=== PATIENT | male | born 1965 | race Caucasian/White ===

== ENCOUNTER 2019-03-05 12:54 | Outpatient (CLI) | payer SELFPAY ==
[2019-03-05 13:38] LABS: Alanine Aminotransferase 21 U/L (4-50); Albumin Level 3.7 g/dL (3.5-5.1); Alkaline Phosphatase 80 U/L (38-126); Aspartate Amino Transferase 22 U/L (17-59); Bilirubin,Total 0.6 mg/dL (0.2-1.3); Blood Urea Nitrogen 14 mg/dL (9-20); Calcium 8.7 mg/dL (8.4-10.2); Carbon Dioxide 28 mmol/L (22-30); Chloride 102 mmol/L (98-107); Cholesterol 208 mg/dL (0-200); Estimated Glomerular Filt Rate 58; Glucose 94 mg/dL (75-110); HDL Direct 35 mg/dL; Potassium 4.3 mmol/L (3.4-5.0); Sodium 137 mmol/L (137-145); Triglycerides 144 mg/dL (<150)
[2019-03-05 13:49] LABS: LDL Cholesterol Direct 147 mg/dL
[2019-03-05 14:08] LABS: Prostate Specific Antigen 1.9 ng/mL (< OR = 4.0)
== END 2019-03-05 12:55 | disposition home or self-care (01) ==
PROVIDERS: PCP Internal Medicine; Visit Provider Nurse Practitioner
DX: I10 Essential (primary) hypertension (principal); E78.5 Hyperlipidemia, unspecified; Z12.5 Encounter for screening for malignant neoplasm of prostate
CPT/HCPCS: 36415; 80053; 80061; 84153

== ENCOUNTER 2020-05-27 08:52 | Outpatient (CLI) | payer MEDICAID, SELFPAY ==
--- NOTE | ~2020-05-27 | XR_ITS ---
XR barium swallow DATE: 05/27/2020 09:44 INDICATION: Dysphagia, food sticking in esophagus TECHNIQUE: Fluoroscopy, rapid sequence spot and overhead radiographs during oral ingestion of barium 0.5 minutes fluoroscopy time DAP: 5.05 COMPARISON: None FINDINGS: There is circumferential narrowing at the distal esophagus with some shouldering, of concer n for possible constricting distal esophageal mass. Endoscopic correlation and biopsy are recommended . IMPRESSION: Possible constricting distal esophageal mass; endoscopic correlation biopsy recommended Dr. Mullins left a voicemail with the results and the recommendation for endoscopy and biopsy at [phone]. Reviewed, dictated and finalized at [facility]. Reviewed, dictated and finalized at [facility]. IMPRESSION: Possible constricting distal esophageal mass; endoscopic correlatio n biopsy recommended Dr. Mullins left a voicemail with the results and the recommendation for endoscopy and biopsy at [phone].
== END 2020-05-27 08:53 | disposition home or self-care (01) ==
LOC: ANHIMG 08:59
PROVIDERS: PCP Internal Medicine; Visit Provider Nurse Practitioner
DX: R13.10 Dysphagia, unspecified (principal)
CPT/HCPCS: 74220

== ENCOUNTER → 2020-05-28 01:01 | Outpatient (CLI) | payer MEDICAID, SELFPAY ==
[2020-05-28 21:02] LABS: SARS-CoV-2 RNA PCR Negative
== END ==
PROVIDERS: PCP Internal Medicine; Visit Provider Internal Medicine Gastroenterology
DX: Z01.812 Encounter for preprocedural laboratory examination (principal); Z20.822 Contact with and (suspected) exposure to COVID-19
CPT/HCPCS: C9803; U0003; U0005

== ENCOUNTER 2020-05-31 01:52 | Day surgery (SDC) | payer MEDICAID, SELFPAY ==
[2020-05-27 13:14] VITALS: BMI 27.0
[2020-05-31 08:45] VITALS: BP 106/78; PULSE 66; RESP 18; TEMP 36.7; O2SAT 100; BMI 27.6
[2020-05-31] MEDS: LACTATED RINGERS 1,000 ML 150 ML IV CONT (08:54)
--- NOTE | 2020-05-31 09:07 | WPDANESEPPF ---
Anes - Initial Pre Proc Eval Procedure: Operation Date: 05/31/20 09:30 Proposed Procedures p Esophagogastroduodenoscopy - Curtis Valentin MD Date/Time: 05/31/20 09:07 Surgeon: Curtis Valentin MD Pre Op Diagnosis: abnormal xray upper gi, dysphagia, poss mass Patient Data Age: 55 Gender: M Height: 5 ft 9 in Weight: 84.9 kg Last Vital Signs Temp 98.1 F 05/31/20 08:45 Pulse 66 05/31/20 08:45 Resp 18 05/31/20 08:45 BP 106/78 05/31/20 08:45 Pulse Ox 100 05/31/20 08:45 Allergies Allergy/AdvReac Type Severity Reaction Status Date / Time codeine Allergy Mild Nausea Verified 05/31/20 08:34 Home Medications Medication Instructions Recorded Confirmed Type krill oil 500 mg capsule 500 mg PO DAILY cap 03/04/19 05/31/20 History cranberry 500 mg capsule 500 mg PO BID 04/28/20 05/31/20 History lisinopril 10 See Rx Instructions .ROUTE 04/28/20 05/31/20 Rx mg-hydrochlorothiazide 12.5 mg .COMPLEX #90 tablet tablet sildenafil 100 mg tablet 100 mg PO DAILY PRN #30 tablet 04/28/20 05/27/20 Rx atorvastatin 10 mg tablet 10 mg PO QHS #30 tablet 04/29/20 05/31/20 Rx Patient hx anesthesia problems: none Family hx anesthesia problems: none PMFSH Past Medical History Medical History (Updated 05/31/20 @ 09:07 by Jan Moon MD) Benign essential hypertension Screening for lipid disorders Skin tag Family History Family History Mother Family history of chronic obstructive pulmonary disease Family history of diabetes mellitus in first degree relative Father Family history of Alzheimer's disease Social History Social History Smoking status: Never smoker Alcohol intake: never Living arrangements: alone Gender identity (if verbalized by the patient): Male Spiritual care concerns: No Anes - Eval Final PreProcedure Day of Procedure 05/31/20 09:07 Patient weight: overweight Heart: regular rate and rhythm Lungs: clear to auscultation Airway: Mallampati scale class II Neurological: alert and oriented Last oral intake: >/= 8 hours ASA classification: II Emergent: no Anesthetic plan: proceed Anesthesia type and monitoring: general GIVS and standard monitoring Informed Consent: The patient's anesthetic plan and its attendant risks and benefits were discussed with the patient/family/POA. Questions were solicited and answers provided to the satisfaction of the patient/family/POA.
--- NOTE | 2020-05-31 09:41 | PM.HPGS ---
History of Present Illness History of Present Illness Consent: Risks, benefits, and alternatives have been discussed and questions answered. Patient agrees to proceed with procedure. Chief complaint: abnormal xray upper gi, dysphagia, poss mass Narrative: Marcelo Rose is a 55 year old male with dysphagia to solids, recent esophagram showed circumferential narrowing at the distal esophagus, never had GED. Using omeprazole as needed. Review of Systems Constitutional: Constitutional: Denies headache(s) and Denies weakness Eyes: Eyes: Denies blurry vision ENT: Reports Normal hearing present, Denies headache(s) and Denies neck pain Cardiovascular: Cardiovascular: Denies chest pain and Denies dyspnea Respiratory: Respiratory: Denies dyspnea Gastrointestinal: Gastrointestinal: Reports no additional gastrointestinal complaints Genitourinary: Genitourinary: Denies dysuria Musculoskeletal: Musculoskeletal: Denies neck pain Integumentary/Breasts: Skin/Breast: Denies dry skin Neurologic: Reports Normal hearing present, Denies headache(s) and Denies weakness Psychiatric: Psychiatric: Denies anxiety Endocrine: Endocrine: Denies change in body appearance Hematologic/Lymphatic: Hematologic/Lymphatic: Denies easy bleeding Allergic/Immunologic: Allergic/Immunologic: Denies urticaria PMFSH Past Medical History Medical History (Updated 05/31/20 @ 09:42 by Curtis Valentin MD) Abnormal esophagram Benign essential hypertension Screening for lipid disorders Skin tag Family History Family History Mother Family history of chronic obstructive pulmonary disease Family history of diabetes mellitus in first degree relative Father Family history of Alzheimer's disease Social History Social History Smoking status: Never smoker Alcohol intake: never Living arrangements: alone Gender identity (if verbalized by the patient): Male Spiritual care concerns: No Meds Home Medications and Allergies Home Medications Medication Instructions Recorded Confirmed Type krill oil 500 mg capsule 500 mg PO DAILY cap 03/04/19 05/31/20 History cranberry 500 mg capsule 500 mg PO BID 04/28/20 05/31/20 History lisinopril 10 See Rx Instructions .ROUTE 04/28/20 05/31/20 Rx mg-hydrochlorothiazide 12.5 mg .COMPLEX #90 tablet tablet sildenafil 100 mg tablet 100 mg PO DAILY PRN #30 tablet 04/28/20 05/27/20 Rx atorvastatin 10 mg tablet 10 mg PO QHS #30 tablet 04/29/20 05/31/20 Rx Allergies Allergy/AdvReac Type Severity Reaction Status Date / Time codeine Allergy Mild Nausea Verified 05/31/20 08:34 Vital Signs Vital Signs - 24 hr 05/31/20 08:45 Temperature 98.1 F Pulse Rate 66 Respiratory Rate 18 Blood Pressure 106/78 Pulse Oximetry 100 Exam Const: General: comfortable and no acute distress HENMT: General nose exam: Normal nares present Eyes: General: appearance normal, both eyes and all related structures Neck: Neck: no JVD Resp: Auscultation: clear to auscultation bilaterally Cardio: Rate: regular rate Rhythm: regular rhythm GI: Inspection: non-distended GI Palp: Yes Soft to palpation Skin: General skin exam: normal color Neuro: General: gait normal Speech: normal speech Extrem: General: normal to inspection Psych: Mental Status: mental status grossly normal Assessment and Plan Assessment and plan (1) Dysphagia: Code(s): R13.10 - Dysphagia, unspecified Status: Acute Assessment and Plan: egd to assess (2) Abnormal esophagram: Code(s): R93.3 - Abnormal findings on diagnostic imaging of other parts of digestive tract Status: Acute Assessment and Plan: egd
--- NOTE | 2020-05-31 09:47 | SUR.OPER ---
Esophageal Balloon 15-18mm Lot: [id number] Exp: 2022-03-15
[2020-05-31 09:53] VITALS: BP 92/59; PULSE 75; RESP 18; O2SAT 98
[2020-05-31 10:03] VITALS: BP 101/60; PULSE 60; RESP 18; O2SAT 99
[2020-05-31 10:13] VITALS: BP 115/64; PULSE 60; RESP 18; O2SAT 99
== END 2020-05-31 11:15 | disposition home or self-care (01) ==
PROVIDERS: PCP Internal Medicine; Visit Provider Internal Medicine Gastroenterology
PROC: 0DJ08ZZ Inspection of Upper Intestinal Tract, Via Natural or Artificial Opening Endoscopic (ICD-10-PCS; CPT 43235; principal; 2020-05-31 09:30)
DX: R13.10 Dysphagia, unspecified (principal); K22.2 Esophageal obstruction; K21.00 Gastro-esophageal reflux disease with esophagitis, without bleeding; I10 Essential (primary) hypertension
CPT/HCPCS: 43249; 43239; 88305; C1726; J2704; J7120

== ENCOUNTER 2020-08-11 10:26 | Outpatient (CLI) | payer OTHER, SELFPAY ==
[2020-08-11 11:01] LABS: Cholesterol 155 mg/dL (0-200); HDL Direct 32 mg/dL; Triglycerides 113 mg/dL (<150)
[2020-08-11 11:12] LABS: LDL Cholesterol Direct 96 mg/dL
== END 2020-08-11 10:27 | disposition home or self-care (01) ==
PROVIDERS: PCP Internal Medicine; Visit Provider Nurse Practitioner
DX: E78.5 Hyperlipidemia, unspecified (principal)
CPT/HCPCS: 36415; 80061

== ENCOUNTER → 2020-10-22 01:22 | Outpatient (CLI) | payer OTHER, SELFPAY ==
[2020-10-22 19:38] LABS: SARS-CoV-2 RNA PCR Negative
== END ==
PROVIDERS: PCP Internal Medicine; Visit Provider Internal Medicine Gastroenterology
DX: Z20.822 Contact with and (suspected) exposure to COVID-19 (principal)
CPT/HCPCS: C9803; U0003; U0005

== ENCOUNTER 2020-10-25 01:23 | Day surgery (SDC) | payer OTHER, SELFPAY ==
[2020-10-14 15:18] VITALS: BMI 27.3
[2020-10-25 08:28] VITALS: BP 121/76; PULSE 65; RESP 20; TEMP 36.8; O2SAT 100
[2020-10-25] MEDS: LACTATED RINGERS 1,000 ML 150 ML IV CONT (08:36)
--- NOTE | 2020-10-25 08:46 | WPDANESEPPF ---
Anes - Initial Pre Proc Eval Procedure: Operation Date: 10/25/20 11:00 Proposed Procedures p Esophagogastroduodenoscopy - Curtis Valentin MD Date/Time: 10/25/20 08:46 Surgeon: Curtis Valentin MD Pre Op Diagnosis: esophagitis, dysphagia Patient Data Age: 55 Gender: M Height: 1.75 m Weight: 84.3 kg Last Vital Signs Temp 98.2 F 10/25/20 08:28 Pulse 65 10/25/20 08:28 Resp 20 10/25/20 08:28 BP 121/76 10/25/20 08:28 Pulse Ox 100 10/25/20 08:28 Allergies Allergy/AdvReac Type Severity Reaction Status Date / Time codeine Allergy Mild Nausea Verified 10/25/20 08:27 Home Medications Medication Instructions Recorded Confirmed Type krill oil 500 mg capsule 500 mg PO DAILY cap 03/04/19 10/25/20 History cranberry 500 mg capsule 500 mg PO BID 04/28/20 10/25/20 History sildenafil 100 mg tablet 100 mg PO DAILY PRN #30 tablet 04/28/20 10/25/20 Rx atorvastatin 10 mg tablet 10 mg PO QHS #30 tablet 04/29/20 10/25/20 Rx omeprazole 20 mg capsule,delayed 20 mg PO DAILY #30 cap 05/31/20 10/25/20 Rx release lisinopril-hydrochlorothiazide 1 tablet PO DAILY 10/14/20 10/25/20 History Patient hx anesthesia problems: none Family hx anesthesia problems: none PMFSH Past Medical History Medical History (Updated 10/25/20 @ 08:48 by Curtis Valentin MD) Abnormal esophagram Benign essential hypertension GERD (gastroesophageal reflux disease) Screening for lipid disorders Skin tag Family History Family History Mother Family history of chronic obstructive pulmonary disease Family history of diabetes mellitus in first degree relative Father Family history of Alzheimer's disease Social History Social History Smoking status: Never smoker Alcohol intake: never Living arrangements: with family Gender identity (if verbalized by the patient): Male Spiritual care concerns: No Anes - Eval Final PreProcedure Day of Procedure 10/25/20 08:46 Patient weight: overweight Heart: regular rate and rhythm Lungs: clear to auscultation Airway: Mallampati scale class II Neurological: alert and oriented Last oral intake: >/= 8 hours ASA classification: II Emergent: no Anesthetic plan: proceed Anesthesia type and monitoring: general GIVS and standard monitoring Informed Consent: The patient's anesthetic plan and its attendant risks and benefits were discussed with the patient/family/POA. Questions were solicited and answers provided to the satisfaction of the patient/family/POA.
--- NOTE | 2020-10-25 08:47 | PM.HPGS ---
History of Present Illness History of Present Illness Consent: Risks, benefits, and alternatives have been discussed and questions answered. Patient agrees to proceed with procedure. Chief complaint: esophagitis, dysphagia Narrative: Marcelo Rose is a 55 year old male with dysphagia due to esophageal ring dilated few months ago and now significantly improved, also esophagitis on ppi Review of Systems Constitutional: Constitutional: Denies headache(s) and Denies weakness Eyes: Eyes: Denies blurry vision ENT: Reports Normal hearing present, Denies headache(s) and Denies neck pain Cardiovascular: Cardiovascular: Denies chest pain and Denies dyspnea Respiratory: Respiratory: Denies dyspnea Gastrointestinal: Gastrointestinal: Reports no additional gastrointestinal complaints Genitourinary: Genitourinary: Denies dysuria Musculoskeletal: Musculoskeletal: Denies neck pain Integumentary/Breasts: Skin/Breast: Denies dry skin Neurologic: Reports Normal hearing present, Denies headache(s) and Denies weakness Psychiatric: Psychiatric: Denies anxiety Endocrine: Endocrine: Denies change in body appearance Hematologic/Lymphatic: Hematologic/Lymphatic: Denies easy bleeding Allergic/Immunologic: Allergic/Immunologic: Denies urticaria PMF Past Medical History Medical History (Updated 10/25/20 @ 08:48 by Curtis Valentin MD) Abnormal esophagram Benign essential hypertension GERD (gastroesophageal reflux disease) Screening for lipid disorders Skin tag Family History Family History Mother Family history of chronic obstructive pulmonary disease Family history of diabetes mellitus in first degree relative Father Family history of Alzheimer's disease Social History Social History Smoking status: Never smoker Alcohol intake: never Living arrangements: with family Gender identity (if verbalized by the patient): Male Spiritual care concerns: No Meds Home Medications and Allergies Home Medications Medication Instructions Recorded Confirmed Type krill oil 500 mg capsule 500 mg PO DAILY cap 03/04/19 10/25/20 History cranberry 500 mg capsule 500 mg PO BID 04/28/20 10/25/20 History sildenafil 100 mg tablet 100 mg PO DAILY PRN #30 tablet 04/28/20 10/25/20 Rx atorvastatin 10 mg tablet 10 mg PO QHS #30 tablet 04/29/20 10/25/20 Rx omeprazole 20 mg capsule,delayed 20 mg PO DAILY #30 cap 05/31/20 10/25/20 Rx release lisinopril-hydrochlorothiazide 1 tablet PO DAILY 10/14/20 10/25/20 History Allergies Allergy/AdvReac Type Severity Reaction Status Date / Time codeine Allergy Mild Nausea Verified 10/25/20 08:27 Vital Signs Vital Signs - 24 hr 10/25/20 08:28 Temperature 98.2 F Pulse Rate 65 Respiratory Rate 20 Blood Pressure 121/76 Pulse Oximetry 100 Exam Const: General: comfortable and no acute distress HENMT: General nose exam: Normal nares present Eyes: General: appearance normal, both eyes and all related structures Neck: Neck: no JVD Resp: Auscultation: clear to auscultation bilaterally Cardio: Rate: regular rate Rhythm: regular rhythm GI: Inspection: non-distended GI Palp: Yes Soft to palpation Skin: General skin exam: normal color Neuro: General: gait normal Speech: normal speech Extrem: General: normal to inspection Psych: Mental Status: mental status grossly normal Assessment and Plan Assessment and plan (1) Dysphagia: Code(s): R13.10 - Dysphagia, unspecified Status: Acute Assessment and Plan: esophageal ring dilated previously and doing better now, egd to reassess (2) GERD (gastroesophageal reflux disease): Code(s): K21.9 - Gastro-esophageal reflux disease without esophagitis Status: Acute
[2020-10-25] MEDS: BENZOCAINE (*SP) 60 ML SPRAY CAN (HURRICAINE) 1 SPRAY MUCOUS MEM (08:52)
[2020-10-25 09:03] VITALS: BP 93/61; PULSE 63; RESP 20; O2SAT 98
[2020-10-25 09:13] VITALS: BP 93/64; PULSE 59; RESP 20; O2SAT 98
[2020-10-25 09:23] VITALS: BP 108/70; PULSE 60; RESP 15; O2SAT 98
== END 2020-10-25 09:45 | disposition home or self-care (01) ==
PROVIDERS: PCP Internal Medicine; Visit Provider Internal Medicine Gastroenterology
PROC: 0DJ08ZZ Inspection of Upper Intestinal Tract, Via Natural or Artificial Opening Endoscopic (ICD-10-PCS; CPT 43235; principal; 2020-10-25 11:00)
DX: K22.2 Esophageal obstruction (principal); K21.9 Gastro-esophageal reflux disease without esophagitis; I10 Essential (primary) hypertension
CPT/HCPCS: 43249; C1726; J7120

== ENCOUNTER 2020-11-11 15:24 | Outpatient (CLI) | payer OTHER, SELFPAY ==
--- NOTE | ~2020-11-11 | XR_ITS ---
XR lumbar spine 2-3V DATE: 11/11/2020 15:49 INDICATION: Lower left flank pain for one week. History of kidney stones. TECHNIQUE: AP, lateral, coned lateral lumbosacral views COMPARISON: None FINDINGS: There is minimal levoscoliosis of the thoracic and upper lumbar spine. No lumbar spine fracture or bone destruction. The lumbar pedicles are intact. There is mild degenerative disc disease of the lumbar spine. The sacral iliac joints are intact. IMPRESSION: Mild multilevel degenerative disc disease Reviewed, dictated and finalized at [facility].
[2020-11-11 17:50] LABS: Anion Gap 8 mmol/L (8-16); Blood Urea Nitrogen 21 mg/dL (9-20); Calcium 9.1 mg/dL (8.4-10.2); Carbon Dioxide 30 mmol/L (22-30); Chloride 102 mmol/L (98-107); Estimated Glomerular Filt Rate 48; Glucose 85 mg/dL (65-110); Potassium 4.1 mmol/L (3.4-5.0); Sodium 140 mmol/L (137-145)
== END 2020-11-11 15:25 | disposition home or self-care (01) ==
LOC: ANHIMG 15:26
PROVIDERS: PCP Internal Medicine; Visit Provider Nurse Practitioner
DX: M47.816 Spondylosis without myelopathy or radiculopathy, lumbar region (principal); M41.9 Scoliosis, unspecified; I10 Essential (primary) hypertension
CPT/HCPCS: 36415; 72100; 80048

== ENCOUNTER → 2020-12-14 04:08 | Outpatient (CLI) | payer OTHER, SELFPAY ==
[2020-12-14 16:54] LABS: SARS-CoV-2 RNA PCR Negative
== END ==
PROVIDERS: PCP Internal Medicine; Visit Provider Internal Medicine
DX: R09.89 Other specified symptoms and signs involving the circulatory and respiratory systems (principal); Z20.822 Contact with and (suspected) exposure to COVID-19
CPT/HCPCS: C9803; U0003; U0005

== ENCOUNTER → 2020-12-22 02:24 | Outpatient (CLI) | payer OTHER, SELFPAY ==
[2020-12-22 18:47] LABS: SARS-CoV-2 RNA PCR Negative
== END ==
PROVIDERS: PCP Internal Medicine; Visit Provider Internal Medicine
DX: R06.89 Other abnormalities of breathing (principal); Z20.822 Contact with and (suspected) exposure to COVID-19
CPT/HCPCS: C9803; U0003; U0005

== ENCOUNTER 2021-06-07 13:50 | Outpatient (CLI) | payer OTHER, SELFPAY ==
[2021-06-07 14:14] LABS: Alanine Aminotransferase 19 U/L (4-50); Albumin Level 4.1 g/dL (3.5-5.1); Alkaline Phosphatase 70 U/L (38-126); Anion Gap 3 mmol/L (8-16); Aspartate Amino Transferase 26 U/L (17-59); Bilirubin,Total 1.1 mg/dL (0.2-1.3); Blood Urea Nitrogen 16 mg/dL (9-20); Calcium 8.7 mg/dL (8.4-10.2); Carbon Dioxide 29 mmol/L (22-30); Chloride 106 mmol/L (98-107); Cholesterol 163 mg/dL (0-200); Estimated Glomerular Filt Rate 48; Glucose 82 mg/dL (65-110); HDL Direct 36 mg/dL; Potassium 4.3 mmol/L (3.4-5.0); Sodium 138 mmol/L (137-145); Triglycerides 89 mg/dL (<150)
[2021-06-07 14:25] LABS: LDL Cholesterol Direct 96 mg/dL
[2021-06-07 14:44] LABS: Prostate Specific Antigen 1.8 ng/mL (< OR = 4.0)
== END 2021-06-07 13:51 | disposition home or self-care (01) ==
LOC: ANHLAB 13:52
PROVIDERS: PCP Internal Medicine; Visit Provider Internal Medicine
DX: I10 Essential (primary) hypertension (principal); Z79.899 Other long term (current) drug therapy; Z12.5 Encounter for screening for malignant neoplasm of prostate; E78.5 Hyperlipidemia, unspecified
CPT/HCPCS: 36415; 80053; 80061; 84153; G0103

== ENCOUNTER 2021-07-23 12:49 | Emergency (ER) | payer OTHER, SELFPAY ==
[2021-07-23 13:04] VITALS: BP 130/94; PULSE 69; RESP 18; TEMP 36.6; O2SAT 100
--- NOTE | 2021-07-23 13:48 | ED.URI ---
HPI - URI/Sore Throat General Chief Complaint: Upper Respiratory Infection Stated Complaint: sore throat Time Seen by Provider: 07/23/21 13:48 Source: patient Mode of arrival: ambulatory Limitations: no limitations History of Present Illness HPI Narrative: 56-year-old male presented for complaint of hoarse voice for 2 days. Endorses he has been coughing up the yellow/brown sputum along with postnasal drainage Denies sore throat, shortness of breath, wheezing, nausea, vomiting, fevers or chills. 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 Has not taken anything for symptoms. Related Data Home Medications Medication Instructions Recorded Confirmed cranberry 500 mg capsule 500 mg PO BID 04/28/20 07/23/21 Allergies Allergy/AdvReac Type Severity Reaction Status Date / Time codeine Allergy Mild Nausea Verified 07/23/21 13:10 Review of Systems Review of Systems: CONSTITUTIONAL: Denies body aches, fever, chills, or sweats. EYES: Denies visual changes, redness, or discharge. ENT: Reports rhinorrhea, congestion, hoarseness CARDIOVASCULAR: Denies chest pain, palpitations, or edema. RESPIRATORY: Denies cough or dyspnea. NEUROLOGIC: Denies headache, numbness, tingling, or weakness. All systems reviewed & are unremarkable except as noted in HPI and below PMFSH Past Medical History Medical History Abnormal esophagram Benign essential hypertension GERD (gastroesophageal reflux disease) Screening for lipid disorders Skin tag Family History Family History Mother Family history of chronic obstructive pulmonary disease Family history of diabetes mellitus in first degree relative Father Family history of Alzheimer's disease Social History Social History Second hand tobacco smoke exposure: No Alcohol intake: never Substance use: never Substance use type: does not use Gender identity (if verbalized by the patient): Male Spiritual care concerns: No Comments At time of signature, I have reviewed and agree with nursing past medical, surgical, social and family history unless otherwise noted. Please see nursing chart for further information. There is no relevant family history pertinent to the presenting complaint Exam Narrative: GENERAL: Well-appearing, well-nourished, and in no acute distress. EYES: EOMI. No redness or drainage. Conjunctivae normal. ENT: Mucous membranes pink and moist. No rhinorrhea. TMs normal bilaterally. Throat erythematous without tonsillar exudate. Uvula midline. NECK: Normal AROM. Supple. No lymphadenopathy. CHEST: No respiratory distress. Clear to auscultation. HEART: Regular rate and rhythm. No murmur appreciated. Normal peripheral pulses. NEURO: No focal deficits. Alert and oriented x3. Gait steady. PSYCH: Normal affect. Course Course Emergency Course: Patient is aware of diagnosis, understands and agrees to treatment plan. Anticipatory guidance given. Patient agrees to follow-up as directed and is aware of reasons to seek care at the emergency department. Portions of this record may have been created with voice recognition software Level of Care: Express Care Visit Vital Signs Vital signs: Vital Signs Temperature 97.8 F 07/23/21 13:04 Pulse Rate 69 07/23/21 13:04 Respiratory Rate 18 07/23/21 13:04 Blood Pressure 130/94 H 07/23/21 13:04 Pulse Oximetry 100 07/23/21 13:04 Oxygen Delivery Room Air 07/23/21 13:04 Temperature 97.8 F 07/23/21 13:04 Pulse Rate 69 07/23/21 13:04 Respiratory Rate 18 07/23/21 13:04 Blood Pressure 130/94 H 07/23/21 13:04 Pulse Oximetry 100 07/23/21 13:04 Oxygen Delivery Room Air 07/23/21 13:04 MDM - URI/Sore Throat MDM Narrative Medical decision making narrative: IM steroid given for hoarse voic
[2021-07-23] MEDS: methylPREDNISolone ACETATE 80 MG/ML VIAL IM (14:05)
== END 2021-07-23 14:13 | disposition home or self-care (01) ==
PROVIDERS: Emergency Provider Nurse Practitioner Family
DX: J02.9 Acute pharyngitis, unspecified (principal); J30.2 Other seasonal allergic rhinitis; I10 Essential (primary) hypertension; K21.9 Gastro-esophageal reflux disease without esophagitis
CPT/HCPCS: 96372; 99213; G0463; J1040

== ENCOUNTER 2021-11-15 15:30 | Emergency (ER) | payer OTHER, SELFPAY ==
[2021-11-15 15:57] VITALS: BP 117/75; PULSE 58; RESP 16; TEMP 36.2; O2SAT 99
--- NOTE | 2021-11-15 16:50 | ED.URI ---
HPI - URI/Sore Throat General Chief Complaint: Upper Respiratory Infection Stated Complaint: congestion, sore throat Time Seen by Provider: 11/15/21 16:50 Source: patient, RN notes reviewed and old records reviewed Mode of arrival: ambulatory Limitations: no limitations History of Present Illness HPI Narrative: 56 year old male presents to [facility] care with complaints of nasal congestion with sore throat and cough for the past 2 days. 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 Patient denies any fevers, chills or sweats, reports no body aches, Patient has not had Covid or influenza vaccines. Patient request steroid shot for his hoarseness. Lungs clear to auscultation strep screen is negative. MD elicited complaint: cough and sore throat Onset (ago): day(s) (2) Treatments prior to arrival: none Related Data Home Medications Medication Instructions Recorded Confirmed cranberry 500 mg capsule 500 mg PO BID 04/28/20 11/15/21 Allergies Allergy/AdvReac Type Severity Reaction Status Date / Time codeine Allergy Mild Nausea Verified 11/15/21 15:37 Review of Systems Review of Systems: CONSTITUTIONAL: Denies malaise, chills, sweats, or fever. EYES: Denies visual changes, redness, or discharge. ENT: Reports rhinorrhea, congestion, sinus pain,no otalgia, reports sore throat and hoarseness. CARDIOVASCULAR: Denies chest pain, palpitations, or edema. RESPIRATORY: Reports cough.? Denies dyspnea. GASTROINTESTINAL: Denies abdominal pain, nausea, vomiting, diarrhea SKIN: Denies rash or itching. MUSCULOSKELETAL: Denies myalgia. NEUROLOGIC: Denies headache. All systems reviewed & are unremarkable except as noted in HPI and below PMFSH Past Medical History Medical History Abnormal esophagram Benign essential hypertension GERD (gastroesophageal reflux disease) Screening for lipid disorders Skin tag Family History Family History Mother Family history of chronic obstructive pulmonary disease Family history of diabetes mellitus in first degree relative Father Family history of Alzheimer's disease Social History Social History (Updated 11/18/21 @ 09:10 by ALVINA Rizzo Smoking status: Never smoker Second hand tobacco smoke exposure: No Alcohol intake: never Substance use: never Substance use type: does not use Gender identity (if verbalized by the patient): Male Spiritual care concerns: No Comments At time of signature, agree with nursing past medical, surgical, social and family history. There is no relevant family history pertinent to the presenting complaint Exam Narrative: GENERAL: Well-appearing, well-nourished, and in no acute distress. HEAD: Normocephalic EYES: PERRLA, conjunctivae clear ENT: Nares clear, turbinates edematous and erythematous, clear discharge. Mucous membranes moist. TM pearly ellis with dull light reflex bilaterally; no tragal tenderness. Oropharynx erythematous without lesions. Tonsils not enlarged and without exudate, no drooling, positive for hoarseness, no trismus, uvula midline. NECK: Supple. No lymphadenopathy CHEST: Clear to auscultation, breath sounds equal. No wheezing, rhonchi, rales, or stridor. No respiratory distress, speaks in full sentences.occasional cough SAO2 99% on room air HEART: Regular rate and rhythm. No murmur heard. SKIN: Warm, dry, no rash. NEURO: Alert and oriented x3. PSYCH: Normal mood and affect Course Course Emergency Course: Patient is aware of diagnosis, understands and agrees to treatment plan.? Anticipatory guidance given.? Patient agrees to follow-up as directed and is aware of reasons to seek care at the emergency department. Portions of this record may have been created with voice
[2021-11-15] MEDS: methylPREDNISolone ACETATE 80 MG/ML VIAL IM (17:19)
== END 2021-11-15 17:40 | disposition home or self-care (01) ==
PROVIDERS: Emergency Provider Registered Nurse; PCP Internal Medicine
DX: J02.9 Acute pharyngitis, unspecified (principal); R49.0 Dysphonia; I10 Essential (primary) hypertension; K21.9 Gastro-esophageal reflux disease without esophagitis
CPT/HCPCS: 87081; 87880; 96372; 99213; G0463; J1040

== ENCOUNTER 2022-06-02 09:41 | Outpatient (CLI) | payer OTHER, SELFPAY ==
[2022-06-02 10:25] LABS: Alanine Aminotransferase 23 U/L (6-50); Albumin Level 3.9 g/dL (3.5-5.1); Alkaline Phosphatase 72 U/L (38-126); Anion Gap 4 mmol/L (8-16); Aspartate Amino Transferase 23 U/L (17-59); Blood Urea Nitrogen 14 mg/dL (9-20); Calcium 8.4 mg/dL (8.4-10.2); Carbon Dioxide 30 mmol/L (22-30); Chloride 106 mmol/L (98-107); Cholesterol 183 mg/dL (0-200); Estimated Glomerular Filt Rate > 60; Glucose 95 mg/dL (65-110); HDL Direct 39 mg/dL; Sodium 140 mmol/L (137-145); Triglycerides 82 mg/dL (<150)
[2022-06-02 10:36] LABS: LDL Cholesterol Direct 115 mg/dL
[2022-06-02 10:56] LABS: Prostate Specific Antigen 1.8 ng/mL (< OR = 4.0)
== END 2022-06-02 09:42 | disposition home or self-care (01) ==
PROVIDERS: PCP Internal Medicine; Visit Provider Internal Medicine
DX: E78.5 Hyperlipidemia, unspecified (principal); Z79.899 Other long term (current) drug therapy; I10 Essential (primary) hypertension; Z12.5 Encounter for screening for malignant neoplasm of prostate
CPT/HCPCS: 36415; 80053; 80061; 84153; G0103

== ENCOUNTER 2022-08-01 10:43 | Outpatient (CLI) | payer OTHER, SELFPAY ==
--- NOTE | ~2022-08-01 | XR_ITS ---
EXAMINATION: XR abdomen/kub 1V INDICATION: Lower abdominal pain TECHNIQUE: Supine views of the abdomen were obtained on 2 radiographs. COMPARISON: 08/28/2011 FINDINGS: The bowel gas pattern is normal. The visualized lung bases are clear. There are phleboliths of the pelvis. There is mild osteoarthritis of the hips. There are no dilated loops of bowel. Lymph nodes are noted in the femoral necks. IMPRESSION: 1. No radiographic correlate for the patient's symptoms. Reviewed, dictated and finalized at location [facility].
[2022-08-01 12:00] LABS: Appearance Urine Clear (Clear); Bilirubin Urine Negative (Negative); Blood Urine Negative (Negative); Color Urine Yellow (Yellow); Glucose Urine UA Negative (Negative); Ketones Urine Negative (Negative); Leukocyte Esterase Ur Negative LEU/UL (NEGATIVE); Nitrate Urine Negative (Negative); Protein Urine Negative (Negative); Specific Grav Ur 1.023 (1.001-1.035); Urobilinogen Urine 0.2 mg/dL (<2.0); pH Urine 5.5 (5.0-9.0)
[2022-08-01 12:10] LABS: Add Urine Microscopic? NO
== END 2022-08-01 10:44 | disposition home or self-care (01) ==
PROVIDERS: PCP Nurse Practitioner; Visit Provider Nurse Practitioner Family
DX: R10.9 Unspecified abdominal pain (principal); R30.0 Dysuria; Z87.442 Personal history of urinary calculi
CPT/HCPCS: 74018; 81003; 87086

== ENCOUNTER 2022-09-22 10:15 | Outpatient (CLI) | payer OTHER, SELFPAY ==
[2022-09-22 12:00] LABS: Basophils Percent Auto 0.4 % (0.2-1.2); Eosinophils Absolute Auto 0.4 K/mm3 (0-0.3); Hemoglobin 15.4 g/dL (14.0-18.0); Immature Granulocyte Absolute 0.02 K/mm3 (0.00-0.031); Immature Granulocyte Percent A 0.3 % (0-0.5); Lymphocytes Percent Auto 16.2 % (18.3-44.2); Mean Corpuscular HGB Conc 32.8 g/dl (32-36); Mean Corpuscular Hemoglobin 31.6 pg (26-34); Mean Corpuscular Volume 96.5 fl (80-100); Mean Platelet Volume 10.1 fl (7.4-10.4); Monocytes Absolute Auto 0.5 K/mm3 (0.1-0.6); Monocytes Percent Auto 7.2 % (2.6-8.5); Neutrophils Absolute Auto 4.8 K/mm3 (1.3-6.7); Neutrophils Percent Auto 69.9 % (45.5-73.1); Platelet Count Result 184 k/mm3 (150-375); Red Blood Count 4.87 M/mm3 (4.6-6.20); Red Cell Distribution Width 13.5 % (11.5-14.5); White Blood Count 6.8 K/mm3 (4.5-10.0)
[2022-09-22 12:07] LABS: Hemoglobin A1C 5.5 % (<5.7)
[2022-09-22 12:18] LABS: Alanine Aminotransferase 27 U/L (6-50); Albumin Level 4.3 g/dL (3.5-5.1); Alkaline Phosphatase 83 U/L (38-126); Anion Gap 5 mmol/L (8-16); Aspartate Amino Transferase 31 U/L (17-59); Bilirubin,Total 1.3 mg/dL (0.2-1.3); Blood Urea Nitrogen 11 mg/dL (9-20); Calcium 8.9 mg/dL (8.4-10.2); Carbon Dioxide 30 mmol/L (22-30); Chloride 105 mmol/L (98-107); Cholesterol 196 mg/dL (0-200); Estimated Glomerular Filt Rate 57; Glucose 94 mg/dL (65-110); HDL Direct 45 mg/dL; Potassium 3.9 mmol/L (3.4-5.0); Sodium 140 mmol/L (137-145); Triglycerides 86 mg/dL (<150)
[2022-09-22 12:27] LABS: LDL Cholesterol Direct 116 mg/dL
[2022-09-22 12:45] LABS: Prostate Specific Antigen 2.2 ng/mL (< OR = 4.0)
[2022-09-22 12:53] LABS: HIV 1/2 Ab P24 Ag Result Negative (Negative)
[2022-09-22 13:20] LABS: Folic Acid 11.4 ng/mL (2.76->20)
== END 2022-09-22 10:16 | disposition home or self-care (01) ==
PROVIDERS: PCP Nurse Practitioner; Visit Provider Nurse Practitioner Family
DX: R20.0 Anesthesia of skin (principal); R20.2 Paresthesia of skin; Z11.4 Encounter for screening for human immunodeficiency virus [HIV]; I10 Essential (primary) hypertension; Z13.228 Encounter for screening for other metabolic disorders; Z13.220 Encounter for screening for lipoid disorders; Z13.0 Encounter for screening for diseases of the blood and blood-forming organs and certain disorders involving the immune mechanism; Z12.5 Encounter for screening for malignant neoplasm of prostate; Z11.59 Encounter for screening for other viral diseases; Z11.3 Encounter for screening for infections with a predominantly sexual mode of transmission
CPT/HCPCS: 36415; 80053; 80061; 82248; 82607; 82746; 83036; 84153; 84443; 85025; 86703; 87491; 87591; G0103; G0432

== ENCOUNTER 2023-05-03 10:46 | Outpatient (CLI) | payer OTHER, SELFPAY ==
[2023-05-03 11:45] LABS: Alanine Aminotransferase 21 U/L (6-50); Alkaline Phosphatase 78 U/L (38-126); Anion Gap 4 mmol/L (4-12); Aspartate Amino Transferase 23 U/L (17-59); Blood Urea Nitrogen 16 mg/dL (9-20); Calcium 9.1 mg/dL (8.4-10.2); Carbon Dioxide 30 mmol/L (22-30); Chloride 105 mmol/L (98-107); Cholesterol 158 mg/dL (0-200); Estimated Glomerular Filt Rate 52; Glucose 93 mg/dL (65-110); HDL Direct 35 mg/dL; Potassium 4.1 mmol/L (3.4-5.0); Sodium 139 mmol/L (137-145); Triglycerides 150 mg/dL (<150)
[2023-05-03 11:56] LABS: LDL Cholesterol Direct 96 mg/dL
[2023-05-03 13:28] LABS: Hemoglobin A1C 5.7 % (<5.7)
== END 2023-05-03 10:47 | disposition home or self-care (01) ==
PROVIDERS: PCP Nurse Practitioner; Visit Provider Nurse Practitioner
DX: E11.9 Type 2 diabetes mellitus without complications (principal); E78.5 Hyperlipidemia, unspecified
CPT/HCPCS: 36415; 80053; 80061; 83036

== ENCOUNTER 2023-08-30 09:23 | Outpatient (CLI) | payer OTHER, SELFPAY ==
--- NOTE | 2023-08-30 | EST_ITS ---
Patient Info Name: Marcelo Rose Age: 58 years : 1965 Gender: Male Ht: 69 in Wt: 180 lbs BSA: 2.01 m2 HR: 58 bpm BP: 132 / 94 mmHg Heart Rhythm: Sinus Rhythm Exam Date: 08/30/2023 10:18 AM Exam Location: Echo Lab Patient Status: Outpatient Admit Date: 08/30/2023 Staff Ordering Physician: Yaw Olmstead APRN Attending Provider: Yaw Olmstead APRN Exercise Technologist: Afshan Pryor CT Exercise Physician: Jose Ronquillo DO Exam Type: CA stress test treadmill Study Info Indications R07.89 - Other chest pain A treadmill exercise stress test was performed. Summary 1. 1. Negative Jacob exercise stress test for ischemic ST changes by ECG criteria. 2. 2. Good functional capacity, achieving 11 METs of workload. 3. 3. Appropriate HR response to exercise. 4. 4. Appropriate HR recovery at 1 minute post exercise. 5. 5. No imaging with stress testing. 6. 6. Patient informe of the above results. Protocol: Jacob Rest HR: 58 bpm Peak HR: 137 bpm Rest Sys BP: 132 mmHg Peak Sys BP: 170 mmHg Max Pred HR: 161 bpm % Max Pred HR: 85 % Target HR: 137 bpm Max RPP: 23,290 bpm*mmHg Termination Reason: Reached target heart rate or workload Cardiac Symptoms: Shortness of breath Total Time: 9 min : 30 sec Rest Whalen BP: 94 mmHg Peak Whalen BP: 90 mmHg Resting ECG Sinus rhythm. Stress ECG No ST changes. Arrhythmias None. Report Signatures
== END 2023-08-30 09:24 | disposition home or self-care (01) ==
LOC: ANHCARD 09:24
PROVIDERS: PCP Nurse Practitioner; Visit Provider Nurse Practitioner
DX: R07.89 Other chest pain (principal); Z82.49 Family history of ischemic heart disease and other diseases of the circulatory system
CPT/HCPCS: 93017

== ENCOUNTER 2023-11-27 10:57 | Outpatient (CLI) | payer OTHER, SELFPAY ==
[2023-11-27 11:37] LABS: Alanine Aminotransferase 24 U/L (6-50); Albumin Level 4.1 g/dL (3.5-5.1); Alkaline Phosphatase 67 U/L (38-126); Anion Gap 7 mmol/L (4-12); Aspartate Amino Transferase 25 U/L (17-59); Bilirubin,Total 1.3 mg/dL (0.2-1.3); Blood Urea Nitrogen 19 mg/dL (9-20); Calcium 8.8 mg/dL (8.4-10.2); Carbon Dioxide 27 mmol/L (22-30); Chloride 105 mmol/L (98-107); Cholesterol 178 mg/dL (0-200); Estimated Glomerular Filt Rate 57; Glucose 86 mg/dL (65-110); HDL Direct 40 mg/dL; Potassium 4.3 mmol/L (3.4-5.0); Sodium 139 mmol/L (137-145); Triglycerides 79 mg/dL (<150)
[2023-11-27 11:47] LABS: LDL Cholesterol Direct 105 mg/dL
[2023-11-27 12:07] LABS: Prostate Specific Antigen 2.1 ng/mL (< OR = 4.0)
== END 2023-11-27 10:58 | disposition home or self-care (01) ==
LOC: ANHLAB 11:01
PROVIDERS: PCP Nurse Practitioner; Visit Provider Nurse Practitioner
DX: Z12.5 Encounter for screening for malignant neoplasm of prostate (principal); E78.5 Hyperlipidemia, unspecified
CPT/HCPCS: 36415; 80053; 80061; 84153; G0103

== ENCOUNTER 2024-06-26 13:55 | Outpatient (CLI) | payer OTHER, SELFPAY ==
--- OUTSIDE RECORDS SUMMARY | 2024-06-26 14:01 | XMS_ITS | Continuity of Care Document ---
Author Organization [facility] Address [address] [place] [address] Phone Care Team Providers Care Sql Report Writer Name Role Phone Sahil Salcido MD Unavailable Unavailable Advance Directives Directive Yes / No Effective Date File Name No Information Encounters Encounter Description Practice Location Reason(s) For Visit Diagnoses Date Provider Providers Copied on Encounter [facility], [id number] [place] [address] [address], [place], [place], [id number], [place] tel:[phone] [facility] No Information 6-200 6 Omari Baxter. [address] [facility] [address], [place], [place], [id number], [place]. tel:[phone] Family History Family Member Type Diagnosis Age At Onset No Information Payers Payer name Insurance type Covered democrat ID Authoriza tion(s) [facility] [id number] Social History Type Description Quantity Date Captured Comments Sex Male Smoking Status No Information Chief Complaint And Reason For Visit No Information Reason For Referral Reason For Referral No Information History Of Present Illness Encounter Date Complaint History Of Prese nt Illness No Information Functional Status Date Functional Assessmen t No Information Instructions Date Instruction Additional Infor mation No Information Assessments Type Assessment Date No Information Patient Care Teams Name Effective Dates (start - stop) Status Members No Information
[2024-06-26 14:20] LABS: Hemoglobin A1C 5.4 % (<5.7)
[2024-06-26 15:20] LABS: Alanine Aminotransferase 20 U/L (6-50); Alkaline Phosphatase 78 U/L (38-126); Anion Gap 5 mmol/L (4-12); Aspartate Amino Transferase 27 U/L (17-59); Bilirubin,Total 1.1 mg/dL (0.2-1.3); Blood Urea Nitrogen 20 mg/dL (9-20); Calcium 8.8 mg/dL (8.4-10.2); Carbon Dioxide 30 mmol/L (22-30); Chloride 105 mmol/L (98-107); Cholesterol 166 mg/dL (0-200); Estimated Glomerular Filt Rate 53; Glucose 88 mg/dL (65-110); HDL Direct 39 mg/dL; Sodium 140 mmol/L (137-145); Triglycerides 102 mg/dL (<150)
[2024-06-26 15:30] LABS: LDL Cholesterol Direct 93 mg/dL
== END 2024-06-26 13:56 | disposition home or self-care (01) ==
PROVIDERS: PCP Nurse Practitioner; Visit Provider Nurse Practitioner
DX: E78.5 Hyperlipidemia, unspecified (principal); R73.9 Hyperglycemia, unspecified; Z79.899 Other long term (current) drug therapy
CPT/HCPCS: 36415; 80053; 80061; 83036; 84443

== ENCOUNTER 2024-07-25 09:17 | Outpatient (CLI) | payer OTHER, SELFPAY ==
--- NOTE | ~2024-07-25 | CT_ITS ---
Non-contrast Head CT History: Syncope, collapse Technique: Axial imaging of the brain was performed prior to and following intravenous administratio n of 100 cc of Omnipaque 350 contrast material. Dose reduction technique was used on this scan by urban mathewsing automated exposure control and iterative reconstruction technique. The dose-length product (DL P) was 1210.67 mGy-cm. Findings: There is no evidence of intracranial hemorrhage, mass lesion, or acute infarct. Brain par enchyma appears normal. The ventricles and subarachnoid spaces are normal in size. The calvarium ap pears normal. The visualized paranasal sinuses and mastoid air cells are clear. No abnormal postcontrast enhancement seen. Impression: No significant abnormality seen. Reviewed, dictated and finalized at [facility]. Impression: No significant abnormality seen.
--- NOTE | 2024-07-27 11:22 | WPDNEUROLOGY ---
Neurology EEG Report General Information Date of Study: 07/25/24 TEST EEG DIAGNOSIS Syncopal episode with collapse. CONDITION OF RECORDING Awake, drowsy and asleep. EEG NUMBER [id number] CLINICAL HISTORY Patient reported that he will be standing, will start feeling nauseous, somewhat dizzy, and develops tunnel vision and then passes out. Patient has had of these episodes, 1 in the shower and one while eating at the kitchen table. he reported when he comes to he is disoriented, but aware of where and who he is. EEG DESCRIPTION Basic resting occipital frequency consists of low voltage 9 to 11 hertz per 2nd alpha with fair anteroposterior gradient and waxing and waning during drowsiness admixed with low-voltage 15 to 21 hertz per 2nd beta activity. Hyperventilation produced poor buildup but no evidence of any paroxysmal discharge. Bilateral symmetrical sleep activity is noted during sleep. IMPRESSION No significant abnormalities noted in this tracing, clinical correlation is recommended. This particular tracing is not diagnostic of seizure disorder.
--- NOTE | 2024-08-11 16:37 | WPDHOLTEREM ---
Holter/Event Monitor Holter/Event Monitor Date of procedure: 07/25/24 Holter/Event Procedure: 3-7 Day Holter Monitor Indications: Syncope Conclusion: 1. 5 days holter monitor on 07/25/24. 2. Underlying rhythm is sinus rhythm. HR range 43-137 bpm; average HR 76 bpm. HR at 43 bpm was on 07/25/24 at 5:58 pm. 3. There are rare premature supraventricular complexes, rare supraventricular couplets, and rare supraventricular triplets. No supraventricular tachycardia. 4. There are rare premature ventricular complexes. No ventricular tachycardia. 5. No significant pauses greater than 3 seconds. 6. No symptoms available for correlation.
== END 2024-07-25 09:18 | disposition home or self-care (01) ==
PROVIDERS: PCP Nurse Practitioner; Visit Provider Nurse Practitioner
DX: R55 Syncope and collapse (principal)
CPT/HCPCS: 70470; 93242; 95816; Q9967

== ENCOUNTER 2024-08-04 16:43 | Outpatient (CLI) | payer OTHER, SELFPAY ==
--- NOTE | ~2024-08-04 | US_ITS ---
EXAMINATION: US carotid duplex BI DATE: 08/04/2024 17:15 INDICATION: Syncope and collapse TECHNIQUE: Grayscale, color Doppler, and pulsed Doppler images of the cervical carotid arteries were obtained. The degree of vessel stenosis is placed in one of the following categories: normal, <50%, 5 0-69%, >=70% but less than near-occlusion, near-occlusion, or total occlusion. Note that percent sten osis relative to normal distal artery lumen diameter is indirectly measured from velocity measurement s as described by Fausto, et al. Radiology 2003; 229:340-346. COMPARISON: None. FINDINGS: RIGHT: The right common carotid artery (CCA) peak systolic velocity (PSV) is 87 cm/s. The right internal car otid artery (ICA) PSV is 97 cm/s. The right ICA end-diastolic velocity (EDV) is 33 cm/s. The right IC A/CCA PSV ratio is 1.1. Grayscale and color Doppler images demonstrate no evidence stenosis or plaque in the ICA. The external carotid artery (ECA) PSV is 74 cm/s. There is antegrade flow in the right v ertebral artery. LEFT: The left CCA PSV is 84 cm/s. The left ICA PSV is 95 cm/s. The left ICA EDV is 40 cm/s. The left ICA/C CA PSV ratio is 1.0. Grayscale and color Doppler images demonstrate no evidence stenosis or plaque in the ICA. The ECA PSV is 53 cm/s. There is antegrade flow in the left vertebral artery. IMPRESSION: 1. No evident plaque or stenosis in the right internal carotid artery. 2. No evident plaque or stenosis in the left internal carotid artery. Reviewed, dictated and finalized at location B.
--- OUTSIDE RECORDS SUMMARY | 2024-08-04 16:49 | XMS_ITS | Continuity of Care Document ---
Author Organization [facility] Address [address] [place] [address] Phone Care Team Providers Care Legal Archivist Name Role Phone Sahil Salcido MD Unavailable Unavailable Advance Directives Directive Yes / No Effective Date File Name No Information Encounters Encounter Description Practice Location Reason(s) For Visit Diagnoses Date Provider Providers Copied on Encounter [facility], [address] [place] [address] [address], [place], [place], [id number], [place] tel:[phone] [facility] No Information 6-200 6 Omari Baxter. [address] [facility] [address], [place], [place], [id number], [place]. tel:[phone] Family History Family Member Type Diagnosis Age At Onset No Information Payers Payer name Insurance type Covered democrat ID Authoriza tion(s) [place] Citizen [facility] [id number] Social History Type Description Quantity Date Captured [...]
--- OUTSIDE RECORDS SUMMARY | 2024-08-04 16:49 | XMS_ITS | Clinical Summary ---
Author Organization [facility] Address [facility] [place] [address] Care Team Providers Care Sales Enablement Analyst Name Role Phone Garry Iverson MD Primary Care Provider [phone] Social History Tobacco Use Types Packs/Day Years Used Date Smoking Tobacco: Never Assessed Sex and Gender Information Value Date Recorded Sex Assigned at Not on file Legal Sex Male 4:58 PM CDT Gender Identity Not on file Sexual Orientation Not on file Plan of Treatment Health Maintenance Due Date Last Done Comments Colorectal Cancer Screening Colonoscopy (10 Years) 1964 Annual Physical 1967 Hepatitis C 1982 DTaP, Tdap and Td Vaccines ( 1 - Tdap) 1983 Pneumococcal Vaccine: 50+ Ye ars (1 of 1 - PCV) 2014 Zoster Vaccines (1 of 2) 2014 COVID-19 Vaccine ( - 2023-2 5 season) 2023 RSV Immunization or 60+ Years (1 - 1-dose 75+ series) 2039 Meningococcal B Vaccine Aged Out No l onger eligible based on patient's age to complete this topic Meningococcal Vaccine Aged Out No roopa jamila eligible based on patient's age to complete this topic RSV Immunizations Under 20 Months Aged Out No longer eligible based on patient's age to complete this topic Care Teams Sales Enablement Analyst Relationship Specialty Start Date End Date Garry Iverson MD PCP - General 02/14/10
== END 2024-08-04 16:44 | disposition home or self-care (01) ==
PROVIDERS: PCP Nurse Practitioner; Visit Provider Nurse Practitioner
DX: R55 Syncope and collapse (principal)
CPT/HCPCS: 93880

== ENCOUNTER 2024-10-23 13:43 | Emergency (ER) | payer OTHER, SELFPAY ==
--- NOTE | 2024-10-23 13:46 | ED.UPPEXIN ---
HPI - Extremity Injury (Upper) General Chief Complaint: Extremity Injury, Upper Stated Complaint: Right Shoulder Pain Time Seen by Provider: 10/23/24 13:45 Source: patient Mode of arrival: ambulatory Limitations: no limitations History of Present Illness HPI narrative: Patient is a 59-year-old male who presents with 2 months of right shoulder pain. Patient states it comes and goes. 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 Denies any known injury. Has not taken anything for symptoms. Denies any numbness, tingling, weakness to distal portions of the arm. Patient still has full range of motion but states when he sleeps on it it hurts. Related Data Home Medications ?Medication ?Instructions ?Recorded ?Confirmed ?Last Taken ?Type cranberry 500 mg capsule 500 mg PO BID 04/28/20 06/26/24 10/24/20 09:00 History Allergies Allergy/AdvReac Type Severity Reaction Status Date / Time codeine Allergy Mild Nausea Verified 10/23/24 13:50 Review of Systems Review of Systems: All systems reviewed & are unremarkable except as noted in HPI and below Constitutional: Constitutional: Denies body ache(s), Denies chills, Denies fatigue, Denies fever(s), Denies headache(s), Denies malaise and Denies weakness Eyes: Eyes: Denies blurry vision, Denies irritation and Denies loss of vision ENT: Denies otalgia, Denies headache(s), Denies nasal discharge, Denies sinus pain and Denies sore throat Cardiovascular: Cardiovascular: Denies chest pain, Denies irregular heart rhythm and Denies dyspnea Respiratory: Respiratory: Denies dyspnea Gastrointestinal: Gastrointestinal: Denies abdominal pain, Denies melena, Denies hematochezia, Denies diarrhea, Denies nausea and Denies vomiting Musculoskeletal: Musculoskeletal: Denies back pain, Denies myalgias and Reports arthralgias Integumentary/Breasts: Skin/Breast: Denies pruritus and Denies rash Neurologic: Denies headache(s), Denies loss of vision and Denies weakness Psychiatric: Psychiatric: Reports no additional psychiatric complaints Endocrine: Endocrine: Denies fatigue PMFSH Past Medical History Medical History GERD (gastroesophageal reflux disease) Abnormal esophagram Screening for lipid disorders Benign essential hypertension Skin tag Family History Family History Mother Family history of chronic obstructive pulmonary disease Family history of diabetes mellitus in first degree relative Father Family history of Alzheimer's disease Social History Social History Smoking status: Never smoker Second hand tobacco smoke exposure: No Alcohol intake: never Substance use: never Substance use type: does not use Lack of Transportation: No Lack of Food: Never True Current Housing: I Have Housing Concerned About Future Housing: No Difficulty Paying Gas/Electric Bills: No Difficulty Paying for Meds: No Currently Unemployed: No Education: High School Diploma/GED Difficulty w/ Childcare or Family Care: No Living arrangements: with family Gender identity (if verbalized by the patient): Male Spiritual care concerns: No Comments At time of signature, agree with nursing past medical, surgical, social and family history. There is no relevant family history pertinent to the presenting complaint. Exam Const: General: cooperative, healthy appearing, comfortable, no acute distress and well nourished Nutritional Appearance: well nourished Orientation/consciousness: patient oriented x3 Limitations: no limitations HENMT: Head: normal to inspection, normocephalic and atraumatic Ears: hearing grossly normal bilaterally and external ears normal Face/Nose/Sinus: Normal external nose present, normal facial exam and face symmetric Face and sinus: normal facial exam and face symmetric Mouth: Yes lip normal Eyes: General: appearance normal, both eyes and all related structures Alignment and Position: alignment normal and position normal Periorbital: periorbital findings normal Eyelids: eyelids normal Pupils: Equal, round and reactive pupils present EOM: EOMs intact bilaterally Neck: Neck: normal visual inspection, full ROM and supple Chest: Chest palpation & inspection: normal inspection of the chest Resp: Effort & Inspection: normal respiratory effort and able to speak in complete sentences Auscultation: clear to auscultation bilaterally Cardio: Rate: regular rate Rhythm: regular rhythm Heart sounds: S1 normal heart sound present and S2 normal heart sound present GI: Inspection: normal to inspection Skin: General skin exam: normal color and no rashes or lesions noted Neuro: General: patient oriented x3 and moves all extremities Cranial nerves: Yes Equal, round and reactive pupils present Speech: normal speech Gait exam (Neuro): Normal gait present Extrem: General: normal to inspection, full ROM and no edema Right upper extremity: normal to inspection, full ROM, normal capillary refill, shoulder/upper arm normal to inspection, axillary nerve sensory function normal and normal ROM; no tenderness, no swelling and no ecchymosis and elbow/forearm normal to inspection, normal ROM and distal pulses intact; no tenderness, no swelling and no ecchymosis Psych: Appearance: grossly normal and well kempt Mental Status: mental status grossly normal Speech and movement: Normal speech and movement present Affect: normal affect Attitude: cooperative Thought process: Normal thought process present Course Course Emergency Course: Patient is aware of diagnosis, understands and agrees to treatment plan. Anticipatory guidance given. Patient agrees to follow-up as directed and is aware of reasons to seek care at the emergency department. Portions of this record may have been created with voice recognition software Level of Care: Express Care Visit Vital Signs Vital signs: Vital Signs Temperature 36.3 C L 10/23/24 13:48 Pulse Rate 63 10/23/24 13:48 Respiratory Rate 16 10/23/24 13:48 Blood Pressure 128/87 10/23/24 13:48 Pulse Oximetry 99 10/23/24 13:48 Oxygen Delivery Room Air 10/23/24 13:48 Temperature 36.3 C L 10/23/24 13:48 Pulse Rate 63 10/23/24 13:48 Respiratory Rate 16 10/23/24 13:48 Blood Pressure 128/87 10/23/24 13:48 Pulse Oximetry 99 10/23/24 13:48 Oxygen Delivery Room Air 10/23/24 13:48 Reviewed MDM - Extremity Injury (Upper) MDM Narrative Medical decision making narrative: The R shoulder is without obvious asymmetry or deformity when comparing to L shoulder. No surface trauma, ecchymosis, crepitus. No bony deformity of the humerus head. No erythema, warmth, swelling to palpate. Nontender to palpate over the clavicle, A to C joint, acromion, scapula, or humeral head. Nontender to palpations of the bicipital groove or soft tissue. Nontender to palpate of the muscles of the sternocleidomastoid, pectoris, biceps/triceps, deltoid, trapezius, rhomboid, latissimus dorsi is, or rotator cuff. No pain or limitation with active or passive abduction/abduction, internal, external rotation, flexion/extension. Negative empty can and arm drop test. No axillary tenderness or lymphadenopathy. Normal sensation over the deltoid and ability to flex the arm at the elbow indicated Intacs axillary nerve function. Distal motor is a normal vascular status is intact. Pt well hydrated appearing, in no respiratory distress, hemodynamically stable. Recommend supportive care. The patient is stable at time of discharge the clinical impression was discussed and the patient was given the opportunity to ask questions, which were addressed as completely as possible given the information available at present. Anticipatory guidance and return to care precautions were discussed and the importance of primary care follow-up was stressed and encouraged. The patient voiced understanding of the plan, indications to return, and the need for follow-up. Exam findings show no acute concerns or changes Patient is appropriate for outpatient treatment and follow-up with PCP for possible physical therapy Differential Diagnosis Differential diagnosis: Likely dislocation of shoulder, fracture of humerus, fracture of clavicle and other (Shoulder strain) Medical Records Attestation: I reviewed the patient's medical records. Discharge Plan Discharge Clinical Impression: Acute shoulder pain Patient Disposition: Home Condition: Stable Instructions: Shoulder Pain (ED) Additional Instructions: Avoid activities that cause pain until the pain subsides. Ice to the area 20-30 minutes 4-6 times a day Tylenol for lesser pain Ibuprofen regularly for the next 2 weeks for the inflammation Follow up with your primary care provider if the condition is not improving within 1 week. The next step would be physical therapy If the condition worsens with numbness, tingling, decrease sensation with weakness seek treatment in the emergency room immediately. Patient Language: Yakut Prescriptions: New ibuprofen 800 mg tablet 800 mg PO TID 14 Days Qty: 42 0RF No Action losartan-hydrochlorothiazide 50-12.5 mg tablet 1 tablet PO DAILY Qty: 90 2RF cranberry 500 mg capsule 500 mg PO BID Rx Instructions: administer with meals omeprazole 20 mg capsule,delayed release(DR/EC) 20 mg PO DAILY Qty: 90 2RF sildenafil [Viagra] 100 mg tablet 100 mg PO DAILY PRN (Reason: sexual activity) Qty: 30 1RF Rx Instructions: administer 30 minutes to 4 hours before activity atorvastatin 10 mg tablet 10 mg PO QHS Qty: 90 1RF Follow-up/Referrals: Yaw Olmstead APRN [Primary Care Provider, Internal Medicine] - 1 Week Time of Disposition: 14:56
[2024-10-23 13:48] VITALS: BP 128/87; PULSE 63; RESP 16; TEMP 36.3; O2SAT 99
== END 2024-10-23 15:00 | disposition home or self-care (01) ==
PROVIDERS: Emergency Provider Nurse Practitioner Family; PCP Nurse Practitioner
DX: M25.511 Pain in right shoulder (principal); I10 Essential (primary) hypertension; K21.9 Gastro-esophageal reflux disease without esophagitis
CPT/HCPCS: 99213; G0463